=== PATIENT | male | born 1985 | race Two or more races ===

== ENCOUNTER 2021-05-24 17:06 | Inpatient (IN) | payer OTHER ==
[2021-05-24 18:17] VITALS: BMI 26.6
[2021-05-24] MEDS ORDERED: MENTHOL/PHENOL 1 EACH UD MM PRN (18:20)
[2021-05-24] MEDS ORDERED: IBUPROFEN 400 MG TABLET (FP) PO PRN (18:20)
[2021-05-24] MEDS ORDERED: MAGNESIUM HYDROX 2400MG/30ML ORAL SUSPENSION 30 ML CUP PO PRN (18:20)
[2021-05-24] MEDS ORDERED: MAGNESIUM CITRATE 300 ML BOTTLE PO PRN (18:20)
[2021-05-24] MEDS ORDERED: MAG HYDROX/AL HYDROX/SIMETH 30 ML UNIT-DOSE CUP PO PRN (18:20)
[2021-05-24] MEDS ORDERED: BISMUTH SUBSALICYLATE 524 MG/30 ML PO PRN (18:20)
[2021-05-24] MEDS ORDERED: P-EPHED 60MG/TRIPROLIDI 2.5MG TABLET PO PRN (18:20)
[2021-05-24] MEDS ORDERED: ACETAMINOPHEN 325 MG TABLET (FP) PO PRN ×2 (18:20)
[2021-05-24] MEDS ORDERED: ONDANSETRON *ODT* 4 MG TABLET SL PRN (18:20)
[2021-05-24] MEDS ORDERED: cloNIDine HCL 0.1 MG TABLET PO PRN (18:23)
[2021-05-24] MEDS ORDERED: methaDONE HCL 10 MG TABLET (FOR DETOX USE ONLY) PO ONE (18:23)
[2021-05-24] MEDS: BACITRACIN 0.9 GM PACKET TP SCH (23:37)
[2021-05-24] MEDS: THIAMINE HCL 100 MG TABLET (FP) PO SCH (23:38)
[2021-05-24] MEDS: MELATONIN 5 MG TABLETS PO SCH (23:56)
[2021-05-25] MEDS: PRENATAL VITAMINS W/ FOLIC ACID TABLET (FP) PO SCH (11:15)
[2021-05-25] MEDS: BACITRACIN 0.9 GM PACKET TP SCH ×2 (11:15→22:59)
[2021-05-25 15:18] LABS: ALBUMIN 3.3 g/dl (3.4-5.0)
[2021-05-25 15:19] LABS: CALCIUM 8.9 mg/dL (8.5-10.1)
[2021-05-25 15:20] LABS: BLOOD UREA NITROGEN 10.4 mg/dL (7-18)
[2021-05-25 15:22] LABS: CREATININE 0.8 mg/dL (0.55-1.3)
[2021-05-25 15:25] LABS: BILIRUBIN,TOTAL 0.3 mg/dL (0.2-1); TOT PROT 7.1 g/dl (6.4-8.2)
[2021-05-25 15:37] LABS: HEMATOCRIT 38.4 % (35.4-49); HEMOGLOBIN 13.1 GM/dL (11.7-16.9); MCHC 34.2 g/dl (32.0-35.9); MEAN CELL VOLUME 84.8 fl (80-96); MEAN PLT VOLUME 8.9 fl (7.5-11.1); PLATELET COUNT 187 10^3/uL (134-434); RBC 4.53 M/mm3 (4.00-5.60); RDW 14.7 % (11.9-15.9); WHITE BLOOD COUNT 4.4 K/mm3 (4.0-10.0)
[2021-05-25] MEDS: hydrOXYzine PAMOATE 25 MG CAPSULE (FP) PO PRN (22:24)
[2021-05-25] MEDS: MELATONIN 5 MG TABLETS PO SCH (22:24)
[2021-05-25] MEDS: THIAMINE HCL 100 MG TABLET (FP) PO SCH (22:24)
[2021-05-26] MEDS ORDERED: methaDONE HCL 10 MG TABLET (FOR DETOX USE ONLY) PO ONE (10:00)
[2021-05-26] MEDS: PRENATAL VITAMINS W/ FOLIC ACID TABLET (FP) PO SCH (10:27)
[2021-05-26] MEDS: BACITRACIN 0.9 GM PACKET TP SCH ×2 (10:27→22:42)
[2021-05-26] MEDS: THIAMINE HCL 100 MG TABLET (FP) PO SCH (22:42)
[2021-05-26] MEDS: MELATONIN 5 MG TABLETS PO SCH (22:42)
[2021-05-26] MEDS: hydrOXYzine PAMOATE 25 MG CAPSULE (FP) PO PRN (22:42)
[2021-05-26] MEDS: METHOCARBAMOL 500 MG TABLET PO PRN (22:42)
[2021-05-27] MEDS ORDERED: methaDONE HCL 10 MG TABLET (FOR DETOX USE ONLY) ONE (09:54)
[2021-05-27] MEDS: BACITRACIN 0.9 GM PACKET TP SCH ×2 (10:24→22:17)
[2021-05-27] MEDS: PRENATAL VITAMINS W/ FOLIC ACID TABLET (FP) PO SCH (10:24)
[2021-05-27] MEDS: hydrOXYzine PAMOATE 25 MG CAPSULE (FP) PO PRN ×2 (10:26→22:16)
[2021-05-27] MEDS: METHOCARBAMOL 500 MG TABLET PO PRN (10:26)
[2021-05-27] MEDS: MELATONIN 5 MG TABLETS PO SCH (22:16)
[2021-05-27] MEDS: THIAMINE HCL 100 MG TABLET (FP) PO SCH (22:16)
[2021-05-28] MEDS ORDERED: methaDONE HCL 10 MG TABLET (FOR DETOX USE ONLY) PO ONE (10:00)
[2021-05-28] MEDS: BACITRACIN 0.9 GM PACKET TP SCH ×2 (10:10→22:11)
[2021-05-28] MEDS: PRENATAL VITAMINS W/ FOLIC ACID TABLET (FP) PO SCH (10:11)
[2021-05-28] MEDS: METHOCARBAMOL 500 MG TABLET PO PRN (10:11)
[2021-05-28] MEDS: THIAMINE HCL 100 MG TABLET (FP) PO SCH (22:11)
[2021-05-28] MEDS: MELATONIN 5 MG TABLETS PO SCH (22:11)
[2021-05-29 06:07] VITALS: TEMP 96.9
[2021-05-29 09:19] VITALS: BP 106/84; PULSE 62
[2021-05-29] MEDS: BACITRACIN 0.9 GM PACKET TP SCH (10:17)
[2021-05-29] MEDS: PRENATAL VITAMINS W/ FOLIC ACID TABLET (FP) PO SCH (10:17)
== END 2021-05-29 10:40 | disposition other institution (70) | DRG 773 ==
LOC: YASAS 17:06 → Y6N 19:44 → Y3N 05-25 13:01
PROVIDERS: ADMIT Allergy & Immunology; ATTEND Allergy & Immunology
PROC: HZ2ZZZZ Detoxification Services for Substance Abuse Treatment (ICD-10-PCS; principal; 2021-05-24)
DX: F11.23 Opioid dependence with withdrawal (principal); F14.20 Cocaine dependence, uncomplicated; F17.210 Nicotine dependence, cigarettes, uncomplicated; M54.5 Low back pain
CPT/HCPCS: 36415; 80053; 85027; 86780; C9803; U0003; U0005

== ENCOUNTER 2022-08-11 13:39 | Inpatient (IN) | payer OTHER ==
[2022-08-11 15:56] VITALS: BMI 23.7
[2022-08-11] MEDS ORDERED: NICOTINE 10 MG CARTRIDGE (INHALER) IH PRN (16:39)
[2022-08-11] MEDS ORDERED: BENZOCAINE/MENTHOL (CHLORASEPTIC ) LOZENGE MM PRN (16:39)
[2022-08-11] MEDS ORDERED: LOPERAMIDE HCL 2 MG CAPSULE PO PRN (16:39)
[2022-08-11] MEDS ORDERED: DICYCLOMINE HCL 10 MG CAPSULE PO PRN (16:39)
[2022-08-11] MEDS ORDERED: MAGNESIUM HYDROX 2400MG/30ML ORAL SUSPENSION 30 ML CUP PO PRN (16:39)
[2022-08-11] MEDS ORDERED: MAG HYDROX/AL HYDROX/SIMETH 30 ML UNIT-DOSE CUP PO PRN (16:39)
[2022-08-11] MEDS ORDERED: IBUPROFEN 600 MG TABLET (FP) PO PRN (16:39)
[2022-08-11] MEDS ORDERED: NALOXONE HCL (KLOXXADO) 8 MG SPRAY NS PRN (16:39)
[2022-08-11] MEDS ORDERED: IBUPROFEN 400 MG TABLET (FP) PO PRN (16:39)
[2022-08-11] MEDS ORDERED: hydrOXYzine PAMOATE 25 MG CAPSULE (FP) PO PRN (16:39)
[2022-08-11] MEDS ORDERED: ACETAMINOPHEN 325 MG TABLET (FP) PO PRN ×2 (16:39)
[2022-08-11] MEDS ORDERED: ONDANSETRON *ODT* 4 MG TABLET SL PRN (16:39)
[2022-08-11] MEDS ORDERED: POLYETHYLENE GLYCOL (HEALTHYLAX) 3350 17 GM PACKET PO PRN (16:39)
[2022-08-11] MEDS ORDERED: BISMUTH SUBSALICYLATE 524 MG/30 ML PO PRN (16:39)
[2022-08-11] MEDS ORDERED: methaDONE HCL 10 MG TABLET (FOR DETOX USE ONLY) PO ONE (16:42)
[2022-08-11] MEDS ORDERED: cloNIDine HCL 0.1 MG TABLET PO PRN (16:42)
[2022-08-11] MEDS ORDERED: ALBUTEROL SO4 0.083% IH SOL 2.5 MG/3 ML VIAL.NEB. NEB PRN (16:46)
[2022-08-11] MEDS: PRENATAL VITAMINS W/ FOLIC ACID TABLET (FP) PO SCH ×2 (18:50→18:53)
[2022-08-11] MEDS: THIAMINE HCL 100 MG TABLET (FP) PO SCH (22:41)
[2022-08-11] MEDS: MELATONIN 5 MG TABLETS PO SCH ×2 (22:41→22:45)
[2022-08-11] MEDS: METHOCARBAMOL 500 MG TABLET PO PRN (22:47)
[2022-08-12] MEDS: PRENATAL VITAMINS W/ FOLIC ACID TABLET (FP) PO SCH (10:31)
[2022-08-12 12:26] LABS: HEMATOCRIT 37.6 % (35.4-49); HEMOGLOBIN 12.7 GM/dL (11.7-16.9); MCH 28.8 pg (25.7-33.7); MCHC 33.7 g/dl (32.0-35.9); MEAN CELL VOLUME 85.5 fl (80-96); MEAN PLT VOLUME 7.9 fl (7.5-11.1); PLATELET COUNT 304 10^3/uL (134-434); RDW 14.6 % (11.9-15.9); WHITE BLOOD COUNT 5.7 K/mm3 (4.0-10.0)
[2022-08-12 12:32] LABS: CALCIUM 8.8 mg/dL (8.5-10.1)
[2022-08-12 12:34] LABS: ALBUMIN 3.3 g/dl (3.4-5.0); BLOOD UREA NITROGEN 15.4 mg/dL (7-18)
[2022-08-12 12:36] LABS: CREATININE 0.5 mg/dL (0.55-1.3)
[2022-08-12 12:37] LABS: BILIRUBIN,TOTAL 0.5 mg/dL (0.2-1); TOT PROT 7.4 g/dl (6.4-8.2)
[2022-08-12] MEDS: MELATONIN 5 MG TABLETS PO SCH (22:57)
[2022-08-12] MEDS: THIAMINE HCL 100 MG TABLET (FP) PO SCH (22:57)
[2022-08-13] MEDS ORDERED: cloNIDine HCL 0.1 MG TABLET PO PRN (08:59)
[2022-08-13] MEDS ORDERED: methaDONE HCL 10 MG TABLET (FOR DETOX USE ONLY) PO ONE ×2 (09:15→10:00)
[2022-08-13] MEDS: METHOCARBAMOL 500 MG TABLET PO PRN (09:45)
[2022-08-13] MEDS: PRENATAL VITAMINS W/ FOLIC ACID TABLET (FP) PO SCH (09:45)
[2022-08-13] MEDS: MELATONIN 5 MG TABLETS PO SCH (22:32)
[2022-08-13] MEDS: THIAMINE HCL 100 MG TABLET (FP) PO SCH (22:32)
[2022-08-14 09:21] VITALS: BP 116/82; PULSE 148; RESP 16; TEMP 97.8
[2022-08-14] MEDS: PRENATAL VITAMINS W/ FOLIC ACID TABLET (FP) PO SCH (10:30)
[2022-08-15] MEDS ORDERED: methaDONE HCL 10 MG TABLET (FOR DETOX USE ONLY) PO ONE ×2 (10:00)
[2022-08-17] MEDS ORDERED: methaDONE HCL 10 MG TABLET (FOR DETOX USE ONLY) PO ONE (10:00)
== END 2022-08-14 09:41 | disposition left against medical advice (07) | DRG 770 ==
LOC: YASAS 13:39 → Y3N 17:10
PROVIDERS: ADMIT Allergy & Immunology; ATTEND Surgery
PROC: HZ2ZZZZ Detoxification Services for Substance Abuse Treatment (ICD-10-PCS; principal; 2022-08-11)
DX: F11.23 Opioid dependence with withdrawal (principal); F14.20 Cocaine dependence, uncomplicated; F16.20 Hallucinogen dependence, uncomplicated; F12.20 Cannabis dependence, uncomplicated; F15.20 Other stimulant dependence, uncomplicated; F17.210 Nicotine dependence, cigarettes, uncomplicated; J45.20 Mild intermittent asthma, uncomplicated; R60.0 Localized edema
CPT/HCPCS: 36415; 80053; 85027; 86780; C9803-CS; U0003; U0005

== ENCOUNTER 2023-05-26 17:49 | Inpatient (IN) | payer OTHER ==
[2023-05-26 20:45] VITALS: BMI 25.8
[2023-05-26] MEDS ORDERED: BENZOCAINE/MENTHOL (CHLORASEPTIC ) LOZENGE MM PRN (21:15)
[2023-05-26] MEDS ORDERED: NALOXONE HCL 0.4 MG/ML VIAL IM PRN (21:15)
[2023-05-26] MEDS ORDERED: P-EPHED 60MG/TRIPROLIDI 2.5MG TABLET PO PRN (21:15)
[2023-05-26] MEDS ORDERED: BISMUTH SUBSALICYLATE 524 MG/30 ML PO PRN (21:15)
[2023-05-26] MEDS ORDERED: IBUPROFEN 400 MG TABLET (FP) PO PRN (21:15)
[2023-05-26] MEDS ORDERED: MAG HYDROX/AL HYDROX/SIMETH 30 ML UNIT-DOSE CUP PO PRN (21:15)
[2023-05-26] MEDS ORDERED: NICOTINE POLACRILEX 2 MG GUM BUC PRN (21:15)
[2023-05-26] MEDS ORDERED: IBUPROFEN 600 MG TABLET (FP) PO PRN (21:15)
[2023-05-26] MEDS ORDERED: MAGNESIUM HYDROX 2400MG/30ML ORAL SUSPENSION 30 ML CUP PO PRN (21:15)
[2023-05-26] MEDS ORDERED: BENZONATATE 200 MG CAPSULE PO PRN (21:15)
[2023-05-26] MEDS ORDERED: ONDANSETRON *ODT* 4 MG TABLET SL PRN (21:15)
[2023-05-26] MEDS ORDERED: POLYETHYLENE GLYCOL (HEALTHYLAX) 3350 17 GM PACKET PO PRN (21:15)
[2023-05-26] MEDS ORDERED: LOPERAMIDE HCL 2 MG CAPSULE PO PRN (21:15)
[2023-05-26] MEDS ORDERED: NALOXONE HCL (KLOXXADO) 8 MG SPRAY NS PRN (21:15)
[2023-05-26] MEDS ORDERED: DICYCLOMINE HCL 10 MG CAPSULE PO PRN (21:15)
[2023-05-26] MEDS ORDERED: guaiFENesin 600 MG TABLET.ER (FP) PO PRN (21:15)
[2023-05-26] MEDS ORDERED: ACETAMINOPHEN 325 MG TABLET (FP) PO PRN (21:15)
[2023-05-26] MEDS ORDERED: cloNIDine HCL 0.1 MG TABLET PO PRN (21:21)
[2023-05-26] MEDS: THIAMINE HCL 100 MG TABLET (FP) PO SCH (23:06)
[2023-05-26] MEDS: METHOCARBAMOL 500 MG TABLET PO PRN (23:06)
[2023-05-26] MEDS: hydrOXYzine PAMOATE 25 MG CAPSULE (FP) PO PRN (23:06)
[2023-05-26] MEDS: MELATONIN 5 MG TABLETS PO SCH (23:06)
[2023-05-26] MEDS ORDERED: ALBUTEROL SO4 0.083% IH SOL 2.5 MG/3 ML VIAL.NEB. NEB PRN (23:24)
[2023-05-26] MEDS: ALBUTEROL SO4 HFA INHALER IH PRN (23:44)
[2023-05-27] MEDS ORDERED: cloNIDine HCL 0.1 MG TABLET PO PRN (10:12)
[2023-05-27] MEDS ORDERED: diazePAM 5 MG TABLET PO PRN (10:13)
[2023-05-27] MEDS: PRENATAL VITAMINS W/ FOLIC ACID TABLET (FP) PO SCH (10:33)
[2023-05-27 10:38] LABS: MCH 28.8 pg (25.7-33.7); MCHC 34.4 g/dl (32.0-35.9); MEAN CELL VOLUME 83.7 fl (80-96); MEAN PLT VOLUME 8.1 fl (7.5-11.1); PLATELET COUNT 238 10^3/uL (134-434); RBC 3.83 M/mm3 (4.00-5.60); RDW 14.5 % (11.9-15.9); WHITE BLOOD COUNT 6.9 K/mm3 (4.0-10.0)
[2023-05-27 10:41] LABS: POTASSIUM 3.9 mmol/L (3.5-5.1)
[2023-05-27] MEDS ORDERED: methaDONE HCL 10 MG TABLET (FOR DETOX USE ONLY) PO ONE (10:45)
[2023-05-27 11:29] LABS: CALCIUM 8.7 mg/dL (8.5-10.1)
[2023-05-27 11:30] LABS: ALBUMIN 2.4 g/dl (3.4-5.0); BLOOD UREA NITROGEN 11.2 mg/dL (7-18)
[2023-05-27 11:33] LABS: CREATININE 0.5 mg/dL (0.55-1.3)
[2023-05-27 11:34] LABS: BILIRUBIN,TOTAL 0.3 mg/dL (0.2-1); TOT PROT 6.6 g/dl (6.4-8.2)
[2023-05-27] MEDS: THIAMINE HCL 100 MG TABLET (FP) PO SCH (22:29)
[2023-05-27] MEDS: MELATONIN 5 MG TABLETS PO SCH (22:29)
[2023-05-28] MEDS: PRENATAL VITAMINS W/ FOLIC ACID TABLET (FP) PO SCH (10:56)
[2023-05-28] MEDS: THIAMINE HCL 100 MG TABLET (FP) PO SCH (22:57)
[2023-05-28] MEDS: MELATONIN 5 MG TABLETS PO SCH (22:57)
[2023-05-29] MEDS ORDERED: methaDONE HCL 10 MG TABLET (FOR DETOX USE ONLY) PO ONE (10:00)
[2023-05-29] MEDS: PRENATAL VITAMINS W/ FOLIC ACID TABLET (FP) PO SCH (10:39)
[2023-05-29] MEDS: MELATONIN 5 MG TABLETS PO SCH (22:58)
[2023-05-29] MEDS: THIAMINE HCL 100 MG TABLET (FP) PO SCH (22:58)
[2023-05-30] MEDS: PRENATAL VITAMINS W/ FOLIC ACID TABLET (FP) PO SCH (10:55)
[2023-05-30] MEDS: hydrOXYzine PAMOATE 25 MG CAPSULE (FP) PO PRN ×2 (10:56→21:58)
[2023-05-30] MEDS: ALBUTEROL SO4 HFA INHALER IH PRN (21:57)
[2023-05-30] MEDS: METHOCARBAMOL 500 MG TABLET PO PRN (21:58)
[2023-05-30] MEDS: THIAMINE HCL 100 MG TABLET (FP) PO SCH (21:58)
[2023-05-30] MEDS: MELATONIN 5 MG TABLETS PO SCH (21:58)
[2023-05-31] MEDS ORDERED: methaDONE HCL 10 MG TABLET (FOR DETOX USE ONLY) PO ONE (10:00)
[2023-05-31] MEDS: PRENATAL VITAMINS W/ FOLIC ACID TABLET (FP) PO SCH (10:19)
[2023-05-31] MEDS: hydrOXYzine PAMOATE 25 MG CAPSULE (FP) PO PRN (15:40)
[2023-05-31 17:01] VITALS: BP 120/71; PULSE 96; RESP 18; TEMP 97.5
== END 2023-05-31 18:00 | disposition home or self-care (01) | DRG 773 ==
LOC: YASAS 17:49 → Y3N 22:31
PROVIDERS: ADMIT Allergy & Immunology; ATTEND Surgery
PROC: HZ2ZZZZ Detoxification Services for Substance Abuse Treatment (ICD-10-PCS; principal; 2023-05-26)
DX: F11.23 Opioid dependence with withdrawal (principal); F14.20 Cocaine dependence, uncomplicated; F17.210 Nicotine dependence, cigarettes, uncomplicated
CPT/HCPCS: 36415; 71045-TC-FY; 80053; 85027; 86780; 87635; 94640